=== PATIENT | female | born 1960 | race American Indian/Alaskan Native ===

== ENCOUNTER 2016-09-25 18:32 | Emergency (ER) | payer OTHER ==
[2016-09-25 19:15] LABS: Bilirubin,Urine NEG (Negative); Blood,Urine NEG (Negative); Ketones,Urine NEG (Negative); Leukocyte Esterase,Urine NEG (Negative); Mucus,Urine FEW /HPF; Nitrite,Urine NEG (Negative); Urobilinogen,Urine < 2.0 mg/dL (<2.0)
[2016-09-25 19:37] LABS: Basophils % (Auto) 0.7 % (0.0-1.8); Eosinophils % (Auto) 0.8 % (0.0-4.3); Hemoglobin 17.1 gm/dl (10.1-14.3); Mean Corpuscular HGB Conc 34 % (30-34); Mean Corpuscular Hemoglobin 32 pg (28-32); Mean Corpuscular Volume 93 fl (79-97); Platelet Count 160 K/mm3 (140-440); Red Blood Count 5.35 M/mm3 (3.65-5.03); Red Cell Distribution Width 13.5 % (13.2-15.2); White Blood Count 10.2 K/mm3 (4.5-11.0)
[2016-09-25 19:53] LABS: B-Hydroxybutyrate 4.5 mg/dL (0.2-2.8); BUN/Creatinine Ratio 29.16; Calcium 9.9 mg/dL (8.4-10.2); Chloride 86.4 mmol/L (98-107); Potassium 4.5 mmol/L (3.6-5.0)
--- NOTE | 2016-09-25 20:41 | Emergency Department Report ---
HPI - General Chief Complaint: Hyperglycemia Time Seen by Provider: 09/25/16 20:10 - HPI HPI: This is a 56-year-old Afro-Citizen Of [place] female who presents the emergency department from home with complaint of uncontrolled blood sugar, polyuria, polydipsia and some blurred vision that has been going on for the past week. The patient is a [id number] diabetic on glyburide and says she has been compliant with her medications. She otherwise denies any fever, nausea, vomiting, chest pain, shortness breath. She is not on any chronic steroids. Her primary care doctor is Dr. Kamar Painter but he is out of town and therefore she has been unable to see him. She also has a past medical history of CHF, pulmonary hypertension, coronary artery disease with [place] in 2002 and high cholesterol. She is not taken anything for symptoms prior to presentation. No recent travel or sick contacts at home. ED Past Medical Hx - Past Medical History Hx Hypertension: Yes (Pulmonary HTN also) Hx Heart Attack/AMI: Yes (2002) Hx Congestive Heart Failure: Yes Hx Diabetes: Yes () Additional medical history: HIGH CHOLESTEROL - Surgical History Past Surgical History?: Yes Additional Surgical History: X 3. HYSTERECTOMY - Social History Smoking Status: Current Some Day Smoker Substance Use Type: Alcohol - Medications Home Medications: Home Medications Medication Instructions Recorded Confirmed Last Taken Type Metoprolol [Lopressor TAB] 50 mg PO BID #60 tablet 10/23/15 11/28/15 11/27/15 Rx Simvastatin [Zocor TAB] 20 mg PO QHS #30 tablet 10/23/15 11/28/15 11/27/15 Rx Zolpidem [Ambien] 5 mg PO QHS PRN #30 tablet 10/23/15 11/28/15 1 Month Ago Rx amLODIPine [Norvasc] 10 mg PO DAILY #30 tablet 10/23/15 11/28/15 11/27/15 Rx glyBURIDE [Glyburide] 5 mg PO BID #60 tablet 10/23/15 11/28/15 11/27/15 Rx Furosemide [Lasix TAB] 20 mg PO QDAY 11/28/15 11/28/15 11/27/15 History Potassium Chloride [K-Dur] 20 meq PO BID 11/28/15 11/28/15 11/27/15 History Diazepam Tab [Valium] 2 mg PO ONCE #10 tablet 01/06/16 Unknown Rx HYDROcodone/APAP 5-325 [[place] 1 each PO Q6HR PRN #14 tablet 04/18/16 Unknown Rx 5/325] HYDROcodone/APAP 7.5-325 [[place] 1 each PO Q6HR PRN #7 tablet 04/18/16 Unknown Rx 7.5/325] ED Review of Systems ROS: Stated complaint: DIABETIC/BLURRED VISION/THIRSTY/URINATING Other details as noted in HPI Comment: All other systems reviewed and negative Constitutional: denies: chills, fever Eyes: vision change. denies: eye pain, eye discharge ENT: denies: ear pain, throat pain Respiratory: denies: cough, shortness of breath, wheezing Cardiovascular: denies: chest pain, palpitations Endocrine: increased thirst, increased urine Gastrointestinal: denies: abdominal pain, nausea, diarrhea Genitourinary: frequency. denies: dysuria Musculoskeletal: denies: back pain, joint swelling, arthralgia Skin: denies: rash, lesions Neurological: denies: headache, weakness, paresthesias Physical Exam - Physical Exam Vital Signs: Vital Signs 09/25/16 18:42 Temperature 100 F H Pulse Rate 96 H Respiratory 16 Rate Blood Pressure 130/86 O2 Sat by Pulse 100 Oximetry Physical Exam: GENERAL: The patient is well-developed well-nourished. HEENT: Normocephalic. Atraumatic. Extraocular motions are intact. Patient has moist mucous membranes. Pupils equal reactive to light bilaterally. No nystagmus. Oropharynx is clear. Visual acuity: OD 20/30, OS when 20/50, both eyes 20/30 NECK: Supple. Trachea is midline. CHEST/LUNGS: Clear to auscultation. There is no respiratory distress noted. HEART/CARDIOVASCULAR: Regular. There is no tachycardia. There is no gallop rub or murmur. ABDOMEN: Abdomen is soft, nontender. Patient has normal bowel sounds. There is no abdominal distention. SKIN: There is no rash. There is no edema. There is no diaphoresis. NEURO: The patient is awake, alert, and oriented. The patient is cooperative. The patient has no focal neurologic deficits. The patient has normal speech and gait. Cranial nerves II through XII grossly intact. MUSCULOSKELETAL: There is no tenderness or deformity. There is no limitation range of motion. There is no evidence of acute injury. ED Course Vital Signs 09/25/16 18:42 Temperature 100 F H Pulse Rate 96 H Respiratory 16 Rate Blood Pressure 130/86 O2 Sat by Pulse 100 Oximetry ED Medical Decision Making - Lab Data Result diagrams: 09/25/16 19:15 09/25/16 23:57 - EKG Data -: EKG Interpreted by Me EKG shows normal: sinus rhythm, axis, intervals, QRS complexes (RSR' pattern), ST-T waves (nonspecific ST-T changes) Rate: normal - EKG Data When compared to previous EKG there are: no significant change Interpretation: unchanged when compared t (04/17/16) - Medical Decision Making 56-year-old female presents to the emergency department with complaint of polyuria, polydipsia, blurry vision and elevated blood sugar. Patient's blood sugar was found to be about 600 on her first metabolic panel. Patient has a history of CHF so I only gave one liter of IV fluid so that she does not become volume overloaded. She was given 10 units of IV insulin as well. Upon reevaluation her blood sugars come down to 298. Patient says she is feeling improved. She was given 8 units of subcutaneous insulin to bring her sugar down even farther but at a slower pace. Patient will be discharged home to follow-up with her primary care doctor when he returns to [facility] next week. She will hold her glyburide tonight and will continue checking her sugar. She will return to taking the glyburide tomorrow. She will return to the emergency department with any worsening of her symptoms or inability to control the blood sugar. She'll be given a referral for ophthalmology. Patient does not appear to have any signs of DKA - Differential Diagnosis DKA, HHNK, diabetes insipidus, viral syndrome Critical Care Time: No Critical care attestation.: If time is entered above; I have spent that time in minutes in the direct care of this critically ill patient, excluding procedure time. ED Disposition Clinical Impression: Hyperglycemia, Dehydration, Blurry vision Uncontrolled diabetes mellitus Qualifiers: Diabetes mellitus type: type 2 Diabetes mellitus complication status: with hyperglycemia Diabetes mellitus intermediate teacher insulin use: without retirement use Qualified Code(s): E11.65 - Type 2 diabetes mellitus with hyperglycemia Disposition: DISCHARGED TO HOME OR SELFCARE Is pt being admited?: No Condition: Stable Instructions: Diabetic Hyperglycemia (ED) Additional Instructions: Please continue checking her blood sugar. Hold your oral diabetes medication for this evening and restart in the morning. Try to stay away from foods that are high in sugars, carbohydrates and starches. Follow-up with Dr. Painter early next week when you're able to do so. I have given you a referral for a local pump servicer supervisor, Dr. Josue Ervin, to follow up regarding your blurry vision. Return to the emergency department with any worsening of your symptoms or any acute distress. Referrals: KAMAR PAINTER MD [Primary Care Provider] - 3-5 Days JOSUE ERVIN MD [Staff Physician] - 3-5 Days Time of Disposition: 01:04
[2016-09-25] MEDS ORDERED: NACL 0.9% 1000 ML 1,000 ML IV ONE (20:42)
[2016-09-26 00:25] LABS: BUN/Creatinine Ratio 44.28; Blood Urea Nitrogen 31 mg/dL (7-17); Calcium 9.3 mg/dL (8.4-10.2); Carbon Dioxide 21 mmol/L (22-30); Chloride 97.5 mmol/L (98-107); Glucose 298 mg/dL (65-100); Sodium 136 mmol/L (137-145)
[2016-09-26 00:29] LABS: Anion Gap 22 mmol/L; Potassium 4.6 mmol/L (3.6-5.0)
[2016-09-26 00:33] VITALS: BP 116/71
== END 2016-09-26 01:46 | disposition home or self-care (01) ==
LOC: ED 18:32
DX: E11.65 Type 2 diabetes mellitus with hyperglycemia (principal); E86.0 Dehydration; H53.8 Other visual disturbances; I10 Essential (primary) hypertension; I25.2 Old myocardial infarction; I50.9 Heart failure, unspecified; E78.00 Pure hypercholesterolemia, unspecified; F17.200 Nicotine dependence, unspecified, uncomplicated; Z88.0 Allergy status to penicillin; Z88.2 Allergy status to sulfonamides; Z88.8 Allergy status to other drugs, medicaments and biological substances
CPT/HCPCS: 36415; 80048; 81001; 82010; 82805; 82962; 85025; 93005; 93010; 96361; 96372; 96374; 99284; J7030; J1815

== ENCOUNTER 2016-11-26 05:54 | Day surgery (SDC) | payer OTHER ==
[2016-11-26] MEDS ORDERED: NACL 0.9% 500 ML 500 ML IV SCH (07:00)
[2016-11-26 07:01] LABS: Basophils % (Auto) 1.5 % (0.0-1.8); Eosinophils % (Auto) 3.3 % (0.0-4.3); Hematocrit 47.3 % (30.3-42.9); Hemoglobin 16.2 gm/dl (10.1-14.3); Mean Corpuscular HGB Conc 34 % (30-34); Mean Corpuscular Hemoglobin 32 pg (28-32); Mean Corpuscular Volume 93 fl (79-97); Red Blood Count 5.06 M/mm3 (3.65-5.03); Red Cell Distribution Width 12.6 % (13.2-15.2); White Blood Count 8.8 K/mm3 (4.5-11.0)
[2016-11-26 07:05] LABS: Platelet Count 189 K/mm3 (140-440)
[2016-11-26 07:13] LABS: INR 1.05 (0.87-1.13)
[2016-11-26] MEDS ORDERED: HEPARIN/NS 5000 UNIT/500ML(CATH LAB) 1,500 ML IR ONE (09:36)
[2016-11-26] MEDS ORDERED: NACL 0.9% 500 ML 500 ML ONE ×2 (09:37→11:25)
[2016-11-26] MEDS: VERSED ONE ×3 (10:15→10:43)
[2016-11-26] MEDS: SUBLIMAZE ONE ×3 (10:15→10:43)
[2016-11-26] MEDS: XYLOCAINE 2% INFILTRATI ONE ×2 (10:15→10:38)
[2016-11-26 10:24] LABS: Anion Gap 24 mmol/L; Blood Urea Nitrogen 30 mg/dL (7-17); Calcium 9.3 mg/dL (8.4-10.2); Carbon Dioxide 21 mmol/L (22-30); Chloride 99.6 mmol/L (98-107); Glucose 147 mg/dL (65-100); Potassium 3.5 mmol/L (3.6-5.0); Sodium 141 mmol/L (137-145)
[2016-11-26] MEDS ORDERED: [UNRECOGNIZED DRUG - OTHER] IV ONE (11:00)
[2016-11-26] MEDS ORDERED: NACL 0.9% IV ONE (11:00)
--- NOTE | 2016-11-26 12:06 | Short Stay Summary ---
Short Stay Documentation Date of service: 11/26/16 - History H&P: obtained from office - Allergies and Medications Current Medications: Allergies codeine Allergy (Verified 01/06/16 18:15) Hives insulin detemir [From Levemir] Allergy (Unverified 11/26/16 05:55) Hives Penicillins Allergy (Verified 01/06/16 18:15) Hives Sulfa (Sulfonamide Antibiotics) Allergy (Verified 09/25/16 18:41) Hives Home Medications Medication Instructions Recorded Confirmed Last Taken Type Simvastatin [Zocor TAB] 20 mg PO QHS #30 tablet 10/23/15 11/26/16 2 Weeks Ago Rx amLODIPine [Norvasc] 10 mg PO DAILY #30 tablet 10/23/15 11/26/16 11/25/16 Rx Potassium Chloride [K-Dur] 20 meq PO BID 11/28/15 11/26/16 11/25/16 History Aspirin [Aspirin BABY CHEW TAB] 81 mg PO QDAY 10/08/16 11/26/16 11/25/16 History Spironolactone [Aldactone] 25 mg PO QDAY 10/08/16 11/26/16 11/25/16 History Active Medications Sodium Chloride (Nacl 0.9% 500 Ml) 500 mls @ 50 mls/hr IV DIRECT HENRIETTA Stop: 11/26/16 16:59 - Physical exam General appearance: no acute distress Integumentary: no rash HEENT: Atraumatic Lungs: Clear to auscultation Breasts: deferred, normal Heart: Regular rate Female Genitourinary: deferred Rectal Exam: deferred Extremities: no ischemia Neurological: Normal gait - Brief post op/procedure progress note Date of procedure: 11/26/16 Pre-op diagnosis: Pulmonary arterial hypertension Post-op diagnosis: same Procedure: RHC with vasoreactivity testing Anesthesia: MAC Findings: Severe pulmonary arterial hypertension with a negative vasoreactivity test Surgeon: TATIANNA BOOTH Estimated blood loss: none Pathology: none Condition: stable - Hospital course Hospital course: Uneventful - Disposition Condition at discharge: Good Disposition: DISCHARGED TO HOME OR SELFCARE Short Stay Discharge Plan Activity: advance as tolerated Weight Bearing Status: Partial Weight Bearing Diet: low salt Follow up with: BARRY NERI MD [Primary Care Provider] - 7 Days
[2016-11-26] MEDS ORDERED: ULTRAM PO ONE (12:32)
[2016-11-26 15:19] VITALS: BP 103/65
--- NOTE | 2016-11-26 16:10 | Cardiac Catherization Report ---
INDICATION FOR THE PROCEDURE: Pulmonary arterial hypertension. ORDERING PHYSICIAN: Griffin Paul M.D. PROCEDURE PERFORMED: Right heart catheterization with hemodynamic measurement and oxygen saturation run. DESCRIPTION OF PROCEDURE: After obtaining written consent, the patient was draped using sterile technique. A 2% lidocaine was injected into the right groin. A 4-[place] vascular sheath was inserted into the right common femoral artery using micropuncture technique. An 8-[place] vascular sheath was inserted into the right common femoral vein using the micropuncture technique. A 7-[place]hel[place] catheter was used to measure right-sided hemodynamics and perform an oxygen saturation run. A 4-[place] vertebral catheter was used to measure left ventricular end diastolic pressure. No complications occurred during the procedure. Hemostasis was achieved at the end of the procedure using manual pressure. ESTIMATED BLOOD LOSS: Minimal. SPECIMEN REMOVED: None. FINDINGS: HEMODYNAMICS: 1. Aortic pressure was 138/80, left ventricular systolic pressure was 133 with left ventricular end-diastolic pressure of 18 mmHg. 2. The mean right arterial pressure was 18 mmHg. 3. The right ventricular systolic pressure was 94 mmHg with right end diastolic pressure of 23 mmHg. 4. The pulmonary artery systolic pressure was 99 mmHg with a diastolic pressure of 36 mmHg and the mean pulmonary artery pressure was 59 mmHg. The [place] cardiac output was 3.15 L per minute with a cardiac index of 1.6 L per minute per m2. The calculated transpulmonary gradient was 41 mmHg and the calculated pulmonary vascular resistance was 13 Rai units. At 50 mcg per minute of adenosine IV, aortic pressure was 139/80 and pulmonary artery pressure was 99/35 with a mean pulmonary artery pressure of 58 mmHg. At 100 mcg per minute of adenosine IV, right aortic pressure was 138/80 with a pulmonary artery pressure of 99/36 and a mean pulmonary artery pressure of 59 mmHg. At 150 mcg per minute of IV adenosine, aortic pressure was 127/77 with a pulmonary artery pressure of 94/36 and a mean PA pressure of 58 mmHg. No further dose increase of adenosine was attempted due to the patient reported side effects. IMPRESSION: Evidence of severe pulmonary arterial hypertension with a mean PA pressure of 55 mmHg, transpulmonary gradient of 41 mmHg and the pulmonary vascular resistance of 13 Rai units. LVEDP measured at 18 mmHg. Cardiac output is 3.15 L per minute with a cardiac index of 1.63 L per minute per m2 . The vasoreactivity test was negative. RECOMMENDATIONS: The patient will be recommended for aggressive initiation of pulmonary vasodilator therapy. JOB# [id number] DEE/ARLINE
== END 2016-11-26 14:30 | disposition home or self-care (01) ==
LOC: OPU 05:54
PROVIDERS: ATTEND Internal Medicine
DX: I27.0 Primary pulmonary hypertension (principal); E11.9 Type 2 diabetes mellitus without complications; I10 Essential (primary) hypertension; E78.00 Pure hypercholesterolemia, unspecified; Z87.891 Personal history of nicotine dependence; Z79.01 Long term (current) use of anticoagulants
CPT/HCPCS: 36415; 80048; 82962; 85025; 85610; 85730; 93005; 93010; 93451; C1894; J0153; J1644; J2250; J3010; J7040

== ENCOUNTER 2017-12-04 07:32 | Day surgery (SDC) | payer OTHER ==
[2017-12-04] MEDS ORDERED: ECOTRIN PO NR (08:05)
[2017-12-04 08:43] LABS: Basophils # (Auto) 0.1 K/mm3 (0.0-0.1); Basophils % (Auto) 0.9 % (0.0-1.8); Eosinophils # (Auto) 0.2 K/mm3 (0.0-0.4); Eosinophils % (Auto) 2.8 % (0.0-4.3); Hemoglobin 14.5 gm/dl (10.1-14.3); Lymphocytes # (Auto) 1.3 K/mm3 (1.2-5.4); Lymphocytes % (Auto) 16.8 % (13.4-35.0); Mean Corpuscular HGB Conc 34 % (30-34); Mean Corpuscular Hemoglobin 32 pg (28-32); Mean Corpuscular Volume 94 fl (79-97); Monocytes # (Auto) 0.7 K/mm3 (0.0-0.8); Monocytes % (Auto) 9.6 % (0.0-7.3); Platelet Count 195 K/mm3 (140-440); Red Blood Count 4.59 M/mm3 (3.65-5.03); Red Cell Distribution Width 12.6 % (13.2-15.2)
[2017-12-04 08:58] LABS: INR 0.9 (0.87-1.13)
[2017-12-04] MEDS ORDERED: NACL 0.9% 500 ML 500 ML IV SCH (09:00)
[2017-12-04 09:25] LABS: BUN/Creatinine Ratio 30; Blood Urea Nitrogen 21 mg/dL (7-17); Calcium 8.8 mg/dL (8.4-10.2); Hemolysis Index 81
--- NOTE | 2017-12-04 10:03 | Cat Scan Report ---
CTA chest: History: Pulmonary hypertension. Findings: No endobronchial or mediastinal mass. Suspected left lobe thyroid mass. No mediastinal hilar or axillary adenopathy. Maximum diameter of mediastinal lymph nodes dated 1 cm. Evidence of pulmonary arterial hypertension however no evidence of pulmonary embolism. Normal lung parenchyma with scarring left lower lobe. No consolidation or mass. Impression: No evidence of pulmonary embolism. Evidence of pulmonary arterial hypertension. Mediastinal lymph nodes appear enlarged. No lung consolidation. Suspect active mass left lobe thyroid gland. Sonographic correlation may be advised.
[2017-12-04] MEDS ORDERED: HEPARIN/NS 5000 UNIT/500ML(CATH LAB) 1,000 ML IR ONE (10:38)
[2017-12-04] MEDS ORDERED: CALAN ONE (10:39)
[2017-12-04] MEDS ORDERED: XYLOCAINE 2% INFILTRATI ONE (10:39)
[2017-12-04] MEDS ORDERED: HEPARIN 10,000 UNITS/10 ML ONE (10:39)
[2017-12-04] MEDS ORDERED: NITROGLYCERIN SYRINGE 0 ML ONE (10:39)
[2017-12-04] MEDS ORDERED: SUBLIMAZE ONE (10:40)
[2017-12-04] MEDS ORDERED: VERSED ONE (10:40)
--- NOTE | 2017-12-04 11:57 | Short Stay Summary ---
Short Stay Documentation Date of service: 12/04/17 - History H&P: obtained from office - Allergies and Medications Current Medications: Allergies codeine Allergy (Verified 01/06/16 18:15) Hives insulin detemir [From Levemir] Allergy (Unverified 11/26/16 05:55) Hives Penicillins Allergy (Verified 01/06/16 18:15) Hives Sulfa (Sulfonamide Antibiotics) Allergy (Verified 09/25/16 18:41) Hives Home Medications Medication Instructions Recorded Confirmed Last Taken Type Simvastatin [Zocor TAB] 20 mg PO QHS #30 tablet 10/23/15 12/04/17 12/03/17 Rx 20mg Potassium Chloride [K-Dur] 20 meq PO BID 11/28/15 12/04/17 12/03/17 History 20meq Aspirin [Aspirin BABY CHEW TAB] 81 mg PO QDAY 10/08/16 12/04/17 12/03/17 History 81mg Spironolactone [Aldactone] 25 mg PO QDAY 10/08/16 12/04/17 12/03/17 History 25mg Empagliflozin (Nf) [Jardiance (Nf)] 10 mg PO DAILY 12/04/17 12/04/17 12/03/17 History 10mg Macitentan (Nf) [Opsumit (Nf)] 10 mg PO DAILY 12/04/17 12/04/17 12/03/17 History 10mg Metformin HCl [Glucophage Xr] 500 mg PO DAILY 12/04/17 12/04/17 12/01/17 History 500mg Riociguat [Adempas] 2.5 mg PO TID 12/04/17 12/04/17 12/03/17 History 2.5mg Torsemide [Demadex] 20 mg PO DAILY 12/04/17 12/04/17 12/03/17 History 20mg Treprostinil Diolamine [Orenitram 0.125 mg PO TID 12/04/17 12/04/17 12/03/17 History ER] 0.125mg Active Medications Sodium Chloride (Nacl 0.9% 500 Ml) 500 mls @ 50 mls/hr IV DIRECT HENRIETTA Stop: 12/04/17 18:59 Last Admin: 12/04/17 09:00 Dose: 50 mls/hr - Physical exam General appearance: no acute distress Integumentary: no rash HEENT: Atraumatic Lungs: Clear to auscultation Breasts: deferred Heart: Regular rate Gastrointestinal: normal Female Genitourinary: deferred Rectal Exam: deferred Extremities: no ischemia Neurological: Normal gait - Brief post op/procedure progress note Date of procedure: 12/04/17 Pre-op diagnosis: Pulmonary hypertension Post-op diagnosis: same Procedure: RHC Anesthesia: MAC Findings: See report Surgeon: TATIANNA BOOTH Estimated blood loss: none Pathology: none Condition: stable - Hospital course Hospital course: Uneventful - Disposition Condition at discharge: Good Disposition: DC-01 TO HOME OR SELFCARE Short Stay Discharge Plan Activity: advance as tolerated Weight Bearing Status: Partial Weight Bearing Diet: low fat, low cholesterol, low salt Follow up with: BARRY NERI MD [Primary Care Provider] - 7 Days
[2017-12-04] MEDS ORDERED: ULTRAM PO ONE (12:27)
[2017-12-04 13:48] VITALS: BP 97/66
--- NOTE | 2017-12-04 14:05 | Cardiac Catherization Report ---
RIGHT HEART CATHETERIZATION ORDERING PHYSICIAN: Griffin Paul MD INDICATION: Pulmonary hypertension, evaluate for interval changes. PROCEDURES PERFORMED: Right heart catheterization with hemodynamic measurement and oxygen saturation run. DESCRIPTION OF PROCEDURE: After obtaining written consent, the patient was draped in sterile technique. A 2% lidocaine was injected into the right groin. Using micropuncture technique, a 6-Bengali vascular sheath was inserted into the right common femoral vein. A 6-[place]eng[place]-Mechelle catheter was used to measure right-sided hemodynamics and perform oxygen saturation run. No complications occurred during the procedure. Hemostasis was achieved at the end of the procedure using manual pressure. SPECIMEN REMOVED: None. ESTIMATED BLOOD LOSS: Minimal. FINDINGS: HEMODYNAMICS: 1. Mean pulmonary capillary wedge pressure was 21 mmHg. 2. Mean pulmonary artery pressure was 59 mmHg. Pulmonary artery systolic pressure 91 mmHg and pulmonary artery diastolic pressure 39 mmHg. 3. Right ventricular systolic pressure 95 mmHg and right ventricular end-diastolic pressure 28 mmHg. 4. Mean right atrial pressure 22 mmHg. 5. PA saturation 65%, right ventricular saturation 65%, right atrial saturation 64%, SVC saturation 59%, aortic saturation 97%. 6. Cardiac output is 5.81 L per minute with a cardiac index of 2.93 L per minute per meter squared. 7. Transpulmonary gradient is 38 mmHg with a pulmonary vascular resistance of 6.5 Rai units. IMPRESSION: 1. Severe pulmonary hypertension with transpulmonary gradient of 38 mmHg and the pulmonary vascular resistance of 6.5 Rai units. There has been a mild improvement in pulmonary pressures compared to 2016. There is also mild improvement in the transpulmonary gradient and the pulmonary vascular resistance previously was 6.8 Rai units. 2. Preserved cardiac output with a cardiac index of 2.93 liters per minute per meter square, which is improved from 2.67 liters per minute per meter square back in 2016. RECOMMENDATIONS: Continue current management. JOB# [id number] DEE/ARLINE
== END 2017-12-04 14:00 | disposition home or self-care (01) ==
LOC: CATHLABREC 07:32 → EDSTATUS 08:15 → CATHLABREC 14:00
PROVIDERS: ATTEND Internal Medicine
DX: I27.20 Pulmonary hypertension, unspecified (principal); I10 Essential (primary) hypertension; I25.2 Old myocardial infarction; E78.00 Pure hypercholesterolemia, unspecified; E11.9 Type 2 diabetes mellitus without complications; Z79.01 Long term (current) use of anticoagulants; Z87.891 Personal history of nicotine dependence; Z79.899 Other long term (current) drug therapy; Z88.8 Allergy status to other drugs, medicaments and biological substances; Z88.0 Allergy status to penicillin; Z88.2 Allergy status to sulfonamides; Z79.82 Long term (current) use of aspirin
CPT/HCPCS: 36415; 71275; 80048; 85025; 85610; 85730; 93005; 93010; 93451; C1769; J1644; J2250; J3010; J7040; Q9967

== ENCOUNTER 2018-04-18 20:29 | Emergency (ER) | payer OTHER ==
[2018-04-18] MEDS ORDERED: ASPIRIN PO ONE (20:56)
[2018-04-18 21:25] LABS: Basophils % (Auto) 0.5 % (0.0-1.8); Eosinophils # (Auto) 0.2 K/mm3 (0.0-0.4); Eosinophils % (Auto) 1.7 % (0.0-4.3); Hematocrit 44.5 % (30.3-42.9); Hemoglobin 15.1 gm/dl (10.1-14.3); Lymphocytes # (Auto) 0.8 K/mm3 (1.2-5.4); Lymphocytes % (Auto) 8.2 % (13.4-35.0); Mean Corpuscular HGB Conc 34 % (30-34); Mean Corpuscular Hemoglobin 31 pg (28-32); Mean Corpuscular Volume 92 fl (79-97); Monocytes # (Auto) 0.6 K/mm3 (0.0-0.8); Monocytes % (Auto) 6.4 % (0.0-7.3); Platelet Count 213 K/mm3 (140-440); Red Blood Count 4.86 M/mm3 (3.65-5.03)
[2018-04-18 21:34] LABS: BUN/Creatinine Ratio 21; Blood Urea Nitrogen 19 mg/dL (7-17); Calcium 9.8 mg/dL (8.4-10.2); Hemolysis Index 14
[2018-04-18 21:34] LABS: Partial Thromboplastin Time 26.1 Sec. (24.2-36.6)
--- NOTE | 2018-04-18 22:14 | XRay Report ---
FINAL REPORT PROCEDURE: XR CHEST ROUTINE 2V TECHNIQUE: PA and lateral chest radiographs were obtained. CPT 48063 HISTORY: chest pain/sob COMPARISON: No prior studies are available for comparison. FINDINGS: Heart: Mild cardiomegaly is noted. Mediastinum/Vessels: Mild degree pulmonary venous congestion is noted.. Lungs/Pleural space: Subsegment atelectatic changes are noted involving left lung base. There are no confluent infiltrates or mass lesions. Pleural spaces are clear.. Bony thorax: No acute osseous abnormality. Other: IMPRESSION: Mild cardiomegaly with the pulmonary venous congestion consistent with CHF .
[2018-04-19] MEDS ORDERED: LASIX IV ONE (03:02)
--- NOTE | 2018-04-19 03:02 | Emergency Department Report ---
ED Chest Pain HPI - General Chief Complaint: Chest Pain Stated Complaint: CHEST PAIN,HBP Time Seen by Provider: 04/19/18 02:56 Source: patient Mode of arrival: Ambulatory Limitations: No Limitations - History of Present Illness Initial Comments: Patient is 58 years old female with history of congestive heart failure, hypertension and diabetes. Patient presented to the ER complaining of left sided chest pain, described it as a pressure pain with no radiation associated with shortness of breath. Patient stated that she noticed that her heart is racing also. Patient denied any fever or cough. Patient stated that she had a bus tour to [facility] last week Complaint: chest pain -: days(s) Onset: during rest, during exertion Pain Location: left chest Severity: moderate Severity scale (0 -10): 5 Quality: heaviness, pressure Consistency: intermittent Worsens With: exertion - Related Data Home Medications Medication Instructions Recorded Confirmed Last Taken Aspirin [Aspirin BABY CHEW TAB] 81 mg PO QDAY 10/08/16 04/18/18 12/03/17 81mg Empagliflozin (Nf) [Jardiance (Nf)] 10 mg PO DAILY 12/04/17 04/18/18 12/03/17 10mg Macitentan (Nf) [Opsumit (Nf)] 10 mg PO DAILY 12/04/17 04/18/18 12/03/17 10mg Metformin HCl [Glucophage Xr] 500 mg PO DAILY 12/04/17 04/18/18 12/01/17 500mg Riociguat [Adempas] 2.5 mg PO TID 12/04/17 04/18/18 12/03/17 2.5mg Torsemide [Demadex] 20 mg PO BID 04/18/18 04/18/18 Unknown Treprostinil Diolamine [Orenitram 5 mg PO BID 04/18/18 04/18/18 Unknown ER] Previous Rx's Medication Instructions Recorded Last Taken Type Metoprolol Xl [Metoprolol 50 mg PO QDAY tablet 12/09/17 Unknown Rx SUCCINATE ER TAB] Potassium Chloride [K-Dur] 20 meq PO BID tablet 12/09/17 Unknown Rx Pravastatin [Pravachol] 40 mg PO QHS tablet 12/09/17 Unknown Rx Spironolactone [Aldactone] 25 mg PO QDAY #30 tablet 12/09/17 Unknown Rx Furosemide [Lasix] 20 mg PO BID #60 tablet 04/19/18 Unknown Rx Allergies Allergy/AdvReac Type Severity Reaction Status Date / Time codeine Allergy Hives Verified 01/06/16 18:15 insulin detemir Allergy Hives Verified 12/04/17 14:28 [From Levemir] Nitrate Analogues Allergy Unknown Verified 04/18/18 20:57 Penicillins Allergy Hives Verified 01/06/16 18:15 Sulfa (Sulfonamide Allergy Hives Verified 09/25/16 18:41 Antibiotics) Heart Score - HEART Score History: Moderately suspicious EKG: Non-specific Age: 45-65 Risk factors: > 3 risk factors or hx of atherosclerotic disease Troponin: < normal limit HEART Score: 5 - Critical Actions Critical Actions: 4-6 pts:12-16.6% risk of adverse cardiac event. Should be admitted ED Review of Systems ROS: Stated complaint: CHEST PAIN,HBP Other details as noted in HPI Comment: All other systems reviewed and negative Constitutional: denies: chills, fever Respiratory: orthopnea, shortness of breath, SOB with exertion, SOB at rest. denies: cough Cardiovascular: chest pain, palpitations, dyspnea on exertion, orthopnea Gastrointestinal: denies: abdominal pain, nausea, vomiting, diarrhea, constipation, hematemesis, melena, hematochezia Neurological: denies: headache, weakness ED Past Medical Hx - Past Medical History Hx Hypertension: Yes Hx Heart Attack/AMI: No Hx Congestive Heart Failure: Yes Hx Diabetes: Yes Hx Deep Vein Thrombosis: No Hx Pulmonary Embolism: No Hx GERD: No Hx Liver Disease: No Hx Renal Disease: No Hx Arthritis: No Hx Seizures: No Hx Kidney Stones: No Hx Asthma: No Hx COPD: Yes (Home O2 2L 24/7) Hx Tuberculosis: No Hx Dementia: No Hx HIV: No Additional medical history: HIGH CHOLESTEROL, Pulmonary HTN - Surgical History Hx Coronary Stent: No Hx Pacemaker: No Hx Internal Defibrillator: No Additional Surgical History: X 3. HYSTERECTOMY - Social History Smoking Status: Former Smoker Substance Use Type: None - Medications Home Medications: Home Medications Medication Instructions Recorded Confirmed Last Taken Type Aspirin [Aspirin BABY CHEW TAB] 81 mg PO QDAY 10/08/16 04/18/18 12/03/17 History 81mg Empagliflozin (Nf) [Jardiance (Nf)] 10 mg PO DAILY 0504/18/18 12/03/17 History 10mg Macitentan (Nf) [Opsumit (Nf)] 10 mg PO DAILY 12/04/17 04/18/18 12/03/17 History 10mg Metformin HCl [Glucophage Xr] 500 mg PO DAILY 12/04/17 04/18/18 12/01/17 History 500mg Riociguat [Adempas] 2.5 mg PO TID 12/04/17 04/18/18 12/03/17 History 2.5mg Metoprolol Xl [Metoprolol 50 mg PO QDAY tablet 12/09/17 04/18/18 Unknown Rx SUCCINATE ER TAB] Potassium Chloride [K-Dur] 20 meq PO BID tablet 12/09/17 04/18/18 Unknown Rx Pravastatin [Pravachol] 40 mg PO QHS tablet 12/09/17 04/18/18 Unknown Rx Spironolactone [Aldactone] 25 mg PO QDAY #30 tablet 12/09/17 04/18/18 Unknown Rx Torsemide [Demadex] 20 mg PO BID 04/18/18 04/18/18 Unknown History Treprostinil Diolamine [Orenitram 5 mg PO BID 04/18/18 04/18/18 Unknown History ER] Furosemide [Lasix] 20 mg PO BID #60 tablet 04/19/18 Unknown Rx ED Physical Exam - General Limitations: No Limitations General appearance: alert, in no apparent distress - Head Head exam: Present: atraumatic, normocephalic, normal inspection - Eye Eye exam: Present: normal appearance, PERRL - ENT ENT exam: Present: normal exam, normal orophraynx, mucous membranes moist - Neck Neck exam: Present: normal inspection, full ROM. Absent: tenderness, meningismus, lymphadenopathy, thyromegaly - Respiratory Respiratory exam: Present: respiratory distress, rales. Absent: wheezes, rhonchi, stridor, accessory muscle use, decreased breath sounds, prolonged expiratory - Cardiovascular Cardiovascular Exam: Present: tachycardia - GI/Abdominal GI/Abdominal exam: Present: soft, normal bowel sounds. Absent: distended, tenderness, guarding, rebound, rigid, organomegaly, mass, bruit, pulsatile mass - Extremities Exam Extremities exam: Present: normal inspection, normal capillary refill, pedal edema - Back Exam Back exam: Present: normal inspection, full ROM. Absent: tenderness, CVA tenderness (R), CVA tenderness (L), muscle spasm, paraspinal tenderness, vertebral tenderness - Neurological Exam Neurological exam: Present: alert, oriented X3, CN II-XII intact, normal gait, reflexes normal - Skin Skin exam: Present: warm, intact, normal color ED Course Vital Signs 04/18/18 04/19/18 04/19/18 20:51 03:01 03:04 Temperature 98.8 F 98 F Pulse Rate 105 H 92 H 100 H Respiratory 18 22 18 Rate Blood Pressure 144/75 141/76 Blood Pressure 141/76 [Left] O2 Sat by Pulse 92 97 96 Oximetry 04/19/18 04/19/18 04:07 05:38 Temperature Pulse Rate Respiratory Rate Blood Pressure 141/76 132/64 Blood Pressure [Left] O2 Sat by Pulse 95 95 Oximetry ED Medical Decision Making - Lab Data Result diagrams: 04/18/18 21:08 04/18/18 21:08 - EKG Data -: EKG Interpreted by Ok EKG shows normal: sinus rhythm Rate: tachycardia - EKG Data Interpretation: no acute changes - Radiology Data Radiology results: report reviewed Referring Physician: ED ANNETTA Patient Name: MACKENZIE OROURKE Date of : 1960 Sex: Female Report Date: 2018-04-18 Report Status: Finalized Findings [address] [address] XRay Report Signed Patient: MACKENZIE OROURKE MR#: [id number] : 1960 Acct:[id number] Age/Sex: 58 / F ADM Date: 04/18/18 Loc: ED Attending Dr: Ordering Physician: RAMONITA LITTLEJOHN MD Date of Service: 04/18/18 Procedure(s): XR chest routine 2V Accession Number(s): [id number] cc: ED MD ANNETTA Fluoro Time In Minutes: FINAL REPORT PROCEDURE: XR CHEST ROUTINE 2V TECHNIQUE: PA and lateral chest radiographs were obtained. CPT 74874 HISTORY: chest pain/sob COMPARISON: No prior studies are available for comparison. FINDINGS: Heart: Mild cardiomegaly is noted. Mediastinum/Vessels: Mild degree pulmonary venous congestion is noted.. Lungs/Pleural space: Subsegment atelectatic changes are noted involving left lung base. There are no confluent infiltrates or mass lesions. Pleural spaces are clear.. Bony thorax: No acute osseous abnormality. Other: IMPRESSION: Mild cardiomegaly with the pulmonary venous congestion consistent with CHF . Transcribed By: LORENE Dictated By: YANET RAINEY Electronically Authenticated By: YANET RAINEY Signed Date/Time: 04/18/18 1512 Referring Physician: VALARIE PHELPS Patient Name: MACKENZIE OROURKE Date of : 1960 Sex: Female Report Date: 2018-04-19 Report Status: Finalized Findings [facility] [address] [place] [address] Cat Scan Report Signed Patient: MACKENZIE OROURKE MR#: [id number] : 1960 Acct:[id number] Age/Sex: 58 / F ADM Date: 04/18/18 Loc: ED Attending Dr: Ordering Physician: VALARIE PHEPLS Date of Service: 04/19/18 Procedure(s): CT angio chest Accession Number(s): [id number] cc: VALARIE PHELPS FINAL REPORT EXAM: CT ANGIO CHEST HISTORY: CHEST PAIN WITH SYNCOPE TECHNIQUE: A CT angiogram was performed following the intravenous injection of 100 cc of Omnipaque 350. Rotational, sagittal, and coronal MIP reconstructions were reviewed. FINDINGS: There is no evidence of pulmonary embolus or aortic dissection. The thoracic aorta is normal in caliber. The heart is moderately enlarged. Pericardial fluid is not seen. The lungs show no evidence of congestion or infiltrates. Pleural fluid is not seen. The mediastinum reveal several small benign-appearing prevascular space lymph nodes. In the upper abdomen the adrenal glands are not enlarged. The skeletal structures do not show any acute changes. At the thoracic inlet there asymmetric enlargement of the left thyroid lobe low-attenuation foci in the left lobe. IMPRESSION: Cardiomegaly. No evidence of pulmonary embolus, aortic dissection, or vascular congestion. No acute process in the chest. Asymmetric enlargement of the left thyroid lobe with low-attenuation foci compatible with goitrous changes. Transcribed By: RB Dictated By: VANI HICKEY MD Electronically Authenticated By: VANI HICKEY MD Signed Date/Time: 04/19/18543 DD/ 3 TD/TT: 04/19/18543 DD/ 12 TD/TT: 04/18/182212 - Medical Decision Making Ms Orourke is 58 years old female with history of congestive heart failure, hypertension and diabetes. Patient presented to the ER complaining of left sided chest pain, described it as a pressure pain with no radiation associated with shortness of breath. Patient stated that she noticed that her heart is racing also. Patient denied any fever or cough. Patient stated that she had a bus tour to [facility] last week. Patient stated that she is feeling much better. Patient chest x-ray show pulmonary congestion. D-dimer slightly patient had a CTA chest which is negative for pulmonary embolism or aortic dissection. 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 Critical care attestation.: If time is entered above; I have spent that time in minutes in the direct care of this critically ill patient, excluding procedure time. ED Disposition Clinical Impression: Shortness of breath, CHF exacerbation Disposition: TO HOME OR SELFCARE Is pt being admited?: No Condition: Stable Instructions: Heart Failure (ED) Prescriptions: Furosemide [Lasix] 20 mg PO BID #60 tablet Referrals: PRIMARY CARE, [Primary Care Provider] - 3-5 Days
[2018-04-19 03:30] LABS: INR 1.02 (0.87-1.13)
--- NOTE | 2018-04-19 05:44 | Cat Scan Report ---
FINAL REPORT EXAM: CT ANGIO CHEST HISTORY: CHEST PAIN WITH SYNCOPE TECHNIQUE: A CT angiogram was performed following the intravenous injection of 100 cc of Omnipaque 350. Rotational, sagittal, and coronal MIP reconstructions were reviewed. FINDINGS: There is no evidence of pulmonary embolus or aortic dissection. The thoracic aorta is normal in caliber. The heart is moderately enlarged. Pericardial fluid is not seen. The lungs show no evidence of congestion or infiltrates. Pleural fluid is not seen. The mediastinum reveal several small benign-appearing prevascular space lymph nodes. In the upper abdomen the adrenal glands are not enlarged. The skeletal structures do not show any acute changes. At the thoracic inlet there asymmetric enlargement of the left thyroid lobe low-attenuation foci in the left lobe. IMPRESSION: Cardiomegaly. No evidence of pulmonary embolus, aortic dissection, or vascular congestion. No acute process in the chest. Asymmetric enlargement of the left thyroid lobe with low-attenuation foci compatible with goitrous changes.
[2018-04-19 06:37] VITALS: BP 119/72
== END 2018-04-19 06:39 | disposition home or self-care (01) ==
LOC: ED 20:29
DX: I11.0 Hypertensive heart disease with heart failure (principal); I50.9 Heart failure, unspecified; E11.9 Type 2 diabetes mellitus without complications; J44.9 Chronic obstructive pulmonary disease, unspecified; E78.00 Pure hypercholesterolemia, unspecified; Z90.710 Acquired absence of both cervix and uterus; Z87.891 Personal history of nicotine dependence; Z79.82 Long term (current) use of aspirin; Z88.6 Allergy status to analgesic agent; Z88.0 Allergy status to penicillin; Z88.2 Allergy status to sulfonamides; Z88.8 Allergy status to other drugs, medicaments and biological substances
CPT/HCPCS: 36415; 71046; 71275; 80048; 83880; 84484; 85025; 85379; 85610; 85730; 93005; 93010; 96374; 99284; J1940; Q9967